=== PATIENT | female | born 1970 | race Native Hawaiian/Other Pacific Islander ===

== ENCOUNTER 2017-08-14 01:11 | Emergency (ER) | payer BC ==
[~2017-08-14] VITALS: Ht 160 cm; Wt 79.4 kg
[2017-08-14 02:02] LABS: PLATELET COUNT 387 K/uL (152-353)
[2017-08-14 02:07] LABS: POTASSIUM 3.9 mmol/L (3.6-5.2); SODIUM 136 mmol/L (136-145)
[2017-08-14 03:25] VITALS: BP 137/90; TEMP 97.9
== END 2017-08-14 03:26 | disposition home or self-care (01) ==
LOC: ED 01:11
PROVIDERS: Internal Medicine
DX: K80.10 Calculus of gallbladder with chronic cholecystitis without obstruction (principal)
CPT/HCPCS: 80053; 82150; 83690; 85027; 96374; 96375; 99284; J1170; J2270; J2405; Q9963

== ENCOUNTER 2018-06-26 11:07 | Emergency (ER) | payer BC ==
[~2018-06-26] VITALS: Ht 160 cm; Wt 77.1 kg
[2018-06-26 11:38] LABS: PLATELET COUNT 284 K/uL (152-353)
[2018-06-26 11:44] LABS: POTASSIUM 4.2 mmol/L (3.6-5.2); SODIUM 138 mmol/L (136-145)
[2018-06-26 11:50] LABS: PARTIAL THROMBOPLASTIN TIME 24.5 SECONDS (24.5-33.6)
[2018-06-26 16:10] VITALS: BP 120/67; TEMP 98
== END 2018-06-26 16:11 | disposition home or self-care (01) ==
LOC: ED 11:07
PROVIDERS: Family Medicine
DX: R07.89 Other chest pain (principal); K21.9 Gastro-esophageal reflux disease without esophagitis
CPT/HCPCS: 36415; 80053; 81000; 82550; 83735; 84436; 84484; 85027; 85610; 85730; 93005; 96374; 96375; 99284; J2270; J2405; J3490

== ENCOUNTER 2020-10-30 09:13 | Outpatient (CLI) | payer OTHER ==
[2020-10-30 09:40] LABS: PLATELET COUNT 286 K/uL (152-353)
[2020-10-30 09:49] LABS: POTASSIUM 4.2 mmol/L (3.6-5.2); SODIUM 137 mmol/L (136-145)
== END 2020-10-30 21:36 | disposition home or self-care (01) ==
LOC: US 09:13
PROVIDERS: ATTEND Nurse Practitioner Family
DX: R10.12 Left upper quadrant pain (principal); R07.9 Chest pain, unspecified; E03.9 Hypothyroidism, unspecified
CPT/HCPCS: 36415; 80053; 82150; 82550; 82553; 83690; 84436; 84443; 84481; 84484; 85027; 86318

== ENCOUNTER 2020-11-23 08:04 | Outpatient (CLI) | payer OTHER | END 2020-11-23 19:16 | disposition home or self-care (01) | LOC: NM 08:04 → MAMMO 11:00 → NM 19:16 | PROVIDERS: ATTEND Nurse Practitioner Family | DX: R53.83 Other fatigue (principal); Z12.31 Encounter for screening mammogram for malignant neoplasm of breast | CPT/HCPCS: A9500 ==

== ENCOUNTER 2020-11-26 08:48 | Outpatient (CLI) | payer OTHER | END 2020-11-26 22:13 | disposition home or self-care (01) | LOC: MAMMO 08:48 | PROVIDERS: ATTEND Nurse Practitioner Family | DX: Z12.31 Encounter for screening mammogram for malignant neoplasm of breast (principal) ==

== ENCOUNTER 2021-06-12 13:16 | Outpatient (CLI) | payer OTHER ==
[2021-06-12 14:03] LABS: PLATELET COUNT 285 K/uL (152-353)
[2021-06-12 14:24] LABS: POTASSIUM 3.9 mmol/L (3.6-5.2)
== END 2021-06-12 19:34 | disposition home or self-care (01) ==
LOC: LABW 13:16 → RAD 13:16 → ED 13:16 → LABW 19:34
PROVIDERS: ATTEND Family Medicine
DX: Z20.822 Contact with and (suspected) exposure to COVID-19 (principal)
CPT/HCPCS: 36415; 80053; 82728; 85027; 85379; 86140

== ENCOUNTER 2021-06-14 10:09 | Outpatient (CLI) | payer OTHER ==
[2021-06-14 10:29] LABS: PLATELET COUNT 291 K/uL (152-353)
== END 2021-06-14 19:04 | disposition home or self-care (01) ==
LOC: LABW 10:09
PROVIDERS: ATTEND Nurse Practitioner Family
DX: Z20.822 Contact with and (suspected) exposure to COVID-19 (principal)
CPT/HCPCS: 36415; 82728; 85027; 85379; 86140

== ENCOUNTER 2022-01-25 13:48 | Outpatient (CLI) | payer OTHER ==
[2022-01-25 14:12] LABS: POTASSIUM 3.5 mmol/L (3.6-5.2)
== END 2022-01-25 18:54 | disposition home or self-care (01) ==
LOC: CT 13:48
PROVIDERS: ATTEND Nurse Practitioner Family
DX: N20.2 Calculus of kidney with calculus of ureter (principal); R10.11 Right upper quadrant pain
CPT/HCPCS: 36415; 80053; 82150; 83690

== ENCOUNTER 2022-02-25 15:16 | Outpatient (CLI) | payer OTHER | END 2022-02-25 20:01 | disposition home or self-care (01) | LOC: MAMMO 15:16 | PROVIDERS: ATTEND Nurse Practitioner Family | DX: Z12.39 Encounter for other screening for malignant neoplasm of breast (principal) ==

== ENCOUNTER 2022-03-22 09:44 | Outpatient (CLI) | payer OTHER ==
[~2022-03-22] VITALS: Ht 160 cm; Wt 81.8 kg
[2022-03-22 10:05] VITALS: BP 150/86; TEMP 98.5
[2022-03-22 10:40] VITALS: BP 149/75; TEMP 98.2
[2022-03-22 10:55] VITALS: BP 156/85; TEMP 98.4
[2022-03-22 11:25] VITALS: BP 150/85; TEMP 98.7
== END 2022-03-22 19:03 | disposition home or self-care (01) ==
LOC: INF 09:44
PROVIDERS: ATTEND Family Medicine
DX: Z23 Encounter for immunization (principal); U07.1 COVID-19
CPT/HCPCS: 96374; Q0222

== ENCOUNTER 2022-05-13 10:59 | Outpatient (CLI) | payer OTHER | END 2022-05-13 21:29 | disposition home or self-care (01) | LOC: RAD 10:59 | PROVIDERS: ATTEND Nurse Practitioner Primary Care | DX: M25.562 Pain in left knee (principal) ==

== ENCOUNTER 2022-07-22 12:59 | Outpatient (CLI) | payer OTHER | END 2022-07-22 19:22 | disposition home or self-care (01) | LOC: RAD 12:59 | PROVIDERS: ATTEND Physician Assistant | DX: M54.59 Other low back pain (principal) ==